=== PATIENT | female | born 1990 | race African-American/Black ===

== ENCOUNTER 2017-08-09 08:16 | Emergency (ER) | payer SELFPAY ==
[2017-08-09] MEDS ORDERED: AZITHROMYCIN 250 MG TAB ONE (08:54)
--- NOTE | 2017-08-09 08:54 | ER ---
Nurse's Notes [facility] Name: Jose Watts Age: 27 yrs Sex: Female : 1990 Arrival Date: 08/09/2017 Time: 08:19 Bed 17 Private MD: None, None Diagnosis: Acute pharyngitis;Cough Presentation: 08/09 08:29 Presenting complaint: Patient states: perez had sore throat, jasen ear pain x 2 days, denies iw fever. Transition of care: patient was not received from another setting of care. Onset of symptoms was August 09, 2017. Initial Sepsis Screen: Does the patient meet any 2 criteria? No. Patient's initial sepsis screen is negative. Does the patient have a suspected source of infection? No. Patient's initial sepsis screen is negative. Care prior to arrival: None. 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 - Social history:: Smoking status: Patient/guardian denies using tobacco. - Family history:: not pertinent. Screenin:34 Abuse screen: Denies threats or abuse. Nutritional screening: No deficits noted. ae1 Tuberculosis screening: No symptoms or risk factors identified. Fall Risk None identified. Assessment: 08:32 General: Appears in no apparent distress. comfortable, Behavior is calm, cooperative. ae1 Pain: Complains of pain in uvula, left aspect of posterior pharynx and right aspect of posterior pharynx. Neuro: Level of Consciousness is awake, alert, obeys commands, Oriented to person, place, time, situation. Cardiovascular: Heart tones S1 S2 present Patient's skin is warm and dry. Respiratory: Airway is patent Respiratory effort is even, unlabored, relaxed, Breath sounds are clear bilaterally. GI: Bowel sounds present X 4 quads. Abd is soft and non tender X 4 quads. Reports nausea. : No signs and/or symptoms were reported regarding the genitourinary system. EENT: Throat is pink has enlarged tonsils. Derm: Skin is normal. Musculoskeletal: No signs and/or symptoms reported regarding the musculoskeletal system. Vital Signs: 08:30 BP 140 / 94; Pulse 71; Resp 16 S; Temp 97.6(O); Pulse Ox 98% on R/A; Weight 81.65 kg; iw Height 5 ft. 6 in. (167.64 cm); Pain 4/10; 08:30 Body Mass Index 29.05 (81.65 kg, 167.64 cm) ED Course: 08:19 Patient arrived in ED. mr 08:19 None, None is Private Physician. mr 08:25 Shane Tineo MD is Attending Physician. [facility] 08:30 Trey Quevedo, RN is Primary Nurse. ae1 08:30 Triage completed. iw 08:30 Arm band placed on. iw 08:34 Bed in low position. Call light in reach. Side rails up X 1. Pulse ox on. NIBP on. ae1 09:05 No provider procedures requiring assistance completed. Patient did not have IV access iw during this emergency room visit. 09:06 Primary Nurse role handed off by Trey Quevedo, RN Administered Medications: 08:47 Drug: Zithromax 500 mg Route: PO; hj 08:57 Follow up: Response: No adverse reaction Outcome: 08:53 Discharge ordered by . priscilla 09:05 Discharged to home ambulatory. iw 09:05 Condition: stable 09:05 Discharge instructions given to patient, Instructed on discharge instructions, follow up and referral plans. medication usage, Demonstrated understanding of instructions, follow-up care, medications, Prescriptions given X 2. 09:05 Patient left the ED. iw 09:07 Patient left the ED. hj Signatures: Shane Tineo MD MD cha Rivera, Maria Harper Prakash, RN RN Stan Dimas RN RN Trey Quevedo, SOPHIA RN ae1
--- NOTE | 2017-08-09 08:54 | EDPHYS ---
Physician Documentation [facility] Name: Jose Watts Age: 27 yrs Sex: Female : 1990 Arrival Date: 08/09/2017 Time: 08:19 Bed 17 Private MD: None, None ED Physician Shane Tineo HPI: 08/09 08:43 This 27 yrs old Black Female presents to ER via Ambulatory with complaints of Sore priscilla Throat, Ear Pain. 08:43 The patient presents with sore throat. The patient describes throat pain as burning, priscilla constant. Onset: The symptoms/episode began/occurred 3 day(s) ago. Severity of symptoms: At their worst the symptoms were mild, in the emergency department the symptoms are unchanged. Modifying factors: The symptoms are alleviated by nothing, the symptoms are aggravated by swallowing. Associated signs and symptoms: Pertinent positives: cough, fever. The patient has experienced similar episodes in the past, a few times. 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 - Social history:: Smoking status: Patient/guardian denies using tobacco. - Family history:: not pertinent. ROS: 08:43 Constitutional: Negative for fever, chills, and weight loss, Eyes: Negative for injury, priscilla pain, redness, and discharge, ENT: Negative for injury, pain, and discharge, Neck: Negative for injury, pain, and swelling, Cardiovascular: Negative for chest pain, palpitations, and edema, Abdomen/GI: Negative for abdominal pain, nausea, vomiting, diarrhea, and constipation, Back: Negative for injury and pain, : Negative for injury, bleeding, discharge, and swelling, MS/Extremity: Negative for injury and deformity, Skin: Negative for injury, rash, and discoloration, Neuro: Negative for headache, weakness, numbness, tingling, and seizure, Psych: Negative for depression, anxiety, suicide ideation, homicidal ideation, and hallucinations, Allergy/Immunology: Negative for hives, rash, and allergies, Endocrine: Negative for neck swelling, polydipsia, polyuria, polyphagia, and marked weight changes, Hematologic/Lymphatic: Negative for swollen nodes, abnormal bleeding, and unusual bruising. 08:43 Respiratory: Positive for cough, with green sputum, shortness of breath. Exam: 08:43 Constitutional: This is a well developed, well nourished patient who is awake, alert, priscilla and in no acute distress. Head/Face: Normocephalic, atraumatic. Eyes: Pupils equal round and reactive to light, extra-ocular motions intact. Lids and lashes normal. Conjunctiva and sclera are non-icteric and not injected. Cornea within normal limits. Periorbital areas with no swelling, redness, or edema. ENT: Nares patent. No nasal discharge, no septal abnormalities noted. Tympanic membranes are normal and external auditory canals are clear. Oropharynx with no redness, swelling, or masses, exudates, or evidence of obstruction, uvula midline. Mucous membranes moist. Neck: Trachea midline, no thyromegaly or masses palpated, and no cervical lymphadenopathy. Supple, full range of motion without nuchal rigidity, or vertebral point tenderness. No Meningismus. Chest/axilla: Normal chest wall appearance and motion. Nontender with no deformity. No lesions are appreciated. Cardiovascular: Regular rate and rhythm with a normal S1 and S2. No gallops, murmurs, or rubs. Normal PMI, no JVD. No pulse deficits. Abdomen/GI: Soft, non-tender, with normal bowel sounds. No distension or tympany. No guarding or rebound. No evidence of tenderness throughout. Back: No spinal tenderness. No costovertebral tenderness. Full range of motion. Female : Normal external genitalia. Skin: Warm, dry with normal turgor. Normal color with no rashes, no lesions, and no evidence of cellulitis. MS/ Extremity: Pulses equal, no cyanosis. Neurovascular intact. Full, normal range of motion. Neuro: Awake and alert, GCS 15, oriented to person, place, time, and situation. Cranial nerves II-XII grossly intact. Motor strength 5/5 in all extremities. Sensory grossly intact. Cerebellar exam normal. Normal gait. Psych: Awake, alert, with orientation to person, place and time. Behavior, mood, and affect are within normal limits. 08:43 Respiratory: the patient does not display signs of respiratory distress, Respirations: normal, no acute changes, labored breathing, is not present, asymmetrical chest movement, is not seen, Breath sounds: decreased breath sounds, rhonchi, that are mild, are scattered. Vital Signs: 08:30 BP 140 / 94; Pulse 71; Resp 16 S; Temp 97.6(O); Pulse Ox 98% on R/A; Weight 81.65 kg; iw Height 5 ft. 6 in. (167.64 cm); Pain 4/10; 08:30 Body Mass Index 29.05 (81.65 kg, 167.64 cm) iw MDM: 08:25 Patient medically screened. [facility] 08:43 Data reviewed: vital signs, nurses notes. [facility] Administered Medications: 08:47 Drug: Zithromax 500 mg Route: PO; 08:57 Follow up: Response: No adverse reaction Disposition: 08/09/17 08:53 Discharged to Home. Impression: Acute pharyngitis, Cough. - Condition is Stable. - Discharge Instructions: Pharyngitis, Pharyngitis, Xoph-md-Klzx, Cough, Adult, Pbjg-dq-Blod, Cough, Adult, Sore Throat, Igfn-ba-Vmtq. - Prescriptions for Zithromax Z- Cas 250 mg Oral Tablet - take 1 tablet by ORAL route as directed for 5 days Day 1 - take two (2) tablets one time. Day 2, 3, 4 , 5 take one (1) tablet once daily.; 6 tablet. Senait- D 12 Hour 60-120 mg Oral Tablet Sustained Release 12 hr - take 1 tablet by ORAL route every 12 hours As needed; 20 tablet. - Medication Reconciliation Form, Thank You Letter, Antibiotic Education, Prescription Opioid Use, Work release form form. - Follow up: Private Physician; When: 2 - 3 days; Reason: Recheck today's complaints, Continuance of care, Re-evaluation by your physician. - Problem is new. - Symptoms have improved. Signatures: Shane Tineo MD MD cha Williams, Irene, SOPHIA RN Stan Dimas RN RN Corrections: (The following items were deleted from the chart) 09:05 08:53 08/09/2017 08:53 Discharged to Home. Impression: Acute pharyngitis; Cough. iw Condition is Stable. Discharge Instructions: Pharyngitis, Pharyngitis, Akxj-iy-Ifrb, Cough, Adult, Zowg-fy-Rcgf, Cough, Adult, Sore Throat, Esab-sd-Ugwp. Prescriptions for Zithromax Z-Cas 250 mg Oral Tablet - take 1 tablet by ORAL route as directed for 5 days Day 1 - take two (2) tablets one time. Day 2, 3, 4 , 5 take one (1) tablet once daily.; 6 tablet, Senait-D 12 Hour 60-120 mg Oral Tablet Sustained Release 12 hr - take 1 tablet by ORAL route every 12 hours As needed; 20 tablet. and Forms are Medication Reconciliation Form, Thank You Letter, Antibiotic Education, Prescription Opioid Use. Follow up: Private Physician; When: 2 - 3 days; Reason: Recheck today's complaints, Continuance of care, Re-evaluation by your physician. Problem is new. Symptoms have improved. [facility] 09:07 09:05 08/09/2017 08:53 Discharged to Home. Impression: Acute pharyngitis; Cough. hj Condition is Stable. Discharge Instructions: Pharyngitis, Pharyngitis, Hxch-jb-Kezw, Cough, Adult, Dizn-fz-Ytop, Cough, Adult, Sore Throat, Ldex-hp-Idvg. Prescriptions for Zithromax Z-Cas 250 mg Oral Tablet - take 1 tablet by ORAL route as directed for 5 days Day 1 - take two (2) tablets one time. Day 2, 3, 4 , 5 take one (1) tablet once daily.; 6 tablet, Senait-D 12 Hour 60-120 mg Oral Tablet Sustained Release 12 hr - take 1 tablet by ORAL route every 12 hours As needed; 20 tablet. and Forms are Medication Reconciliation Form, Thank You Letter, Antibiotic Education, Prescription Opioid Use. Follow up: Private Physician; When: 2 - 3 days; Reason: Recheck today's complaints, Continuance of care, Re-evaluation by your physician. Problem is new. Symptoms have improved. iw
[2017-08-09 09:10] VITALS: BP 140/94; TEMP 97.6; O2SAT 98
== END 2017-08-09 09:07 | disposition home or self-care (01) ==
LOC: ER 08:16
DX: R05 Cough (principal)
CPT/HCPCS: 99283

== ENCOUNTER 2017-12-16 00:15 | Emergency (ER) | payer SELFPAY ==
[2017-12-16 01:19] LABS: Urine Blood NEGATIVE (NEG); Urine Glucose NEGATIVE (NEG); Urine Protein NEGATIVE (NEG); Urine Specific Gravity 1.015 (1.005-1.030); Urine pH 7.5 (5.0-7.0)
[2017-12-16 02:16] LABS: Absolute Lymphocytes (CBC) 2.1 K/uL (0.7-4.9); Absolute Monocytes 0.8 K/uL (0.1-1.3); Basophils % 0.6 % (0-1.3); Eosinophils % 2.1 % (0-4.4); Lymphocytes % 22.9 % (15.3-44.8); MCH 31.3 pg (27.0-35.0); MCV 90.9 fL (80-100); MPV 7.4 fL (7.6-11.3); RBC Red Blood Cell Count 4.18 M/uL (3.86-4.86)
[2017-12-16 02:23] LABS: Protime INR 1.03
[2017-12-16 02:35] LABS: BUN Blood Urea Nitrogen 10 mg/dL (7-18); Bicarbonate 26 mmol/L (21-32); Glucose Level 109 mg/dL (74-106); Magnesium 2.2 mg/dL (1.8-2.4); NT PRO-BNP 121 pg/mL (<125); Potassium 3.9 mmol/L (3.5-5.1); Sodium Level 137 mmol/L (136-145); Troponin (Emerg Dept Use Only) < 0.02 ng/mL (0.0-0.045)
--- NOTE | 2017-12-16 02:53 | ER ---
Nurse's Notes [facility] Name: Jose Watts Age: 27 yrs Sex: Female : 1990 Arrival Date: 12/16/2017 Time: 00:18 Bed 14 Private MD: Diagnosis: Chest pain, unspecified Presentation: 12/16 00:24 Presenting complaint: Patient states: collar bone pain X2 day intermittent. pt c/o ak1 increased pain with palpation. pt stated she has had increased stress at home along with increased heavy lifting at work. Transition of care: patient was not received from another setting of care. Onset of symptoms was December 14, 2017. Risk Assessment: Do you want to hurt yourself or someone else? Patient reports no desire to harm self or others. Initial Sepsis Screen: Does the patient meet any 2 criteria? No. Patient's initial sepsis screen is negative. Does the patient have a suspected source of infection? No. Patient's initial sepsis screen is negative. Care prior to arrival: 2 tabs motrin taken at 2245. 00:24 Method Of Arrival: Ambulatory ak1 00:24 Acuity: MELISSA 3 ak1 Triage Assessment: 00:26 General: Appears in no apparent distress. Behavior is calm, cooperative. Pain: ak1 Complains of pain in right clavicle and left clavicle. EENT: No signs and/or symptoms were reported regarding the EENT system. Neuro: No deficits noted. 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 Respiratory: No deficits noted. GI: No signs and/or symptoms were reported involving the gastrointestinal system. : No signs and/or symptoms were reported regarding the genitourinary system. Derm: Musculoskeletal: No signs and/or symptoms reported regarding the musculoskeletal system. 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 - Social history:: Smoking status: Patient uses tobacco products, smokes one-half pack cigarettes per day. - Ebola Screening: : No symptoms or risks identified at this time. Screenin:28 Abuse screen: Denies threats or abuse. Denies injuries from another. Nutritional ak1 screening: No deficits noted. Tuberculosis screening: No symptoms or risk factors identified. Fall Risk None identified. Assessment: 00:28 Pain: Pain does not radiate. Pain began 2-3 days ago. ak1 Vital Signs: 00:23 BP 146 / 89; Pulse 78; Resp 18; Temp 98.6; Pulse Ox 99% on R/A; Weight 99.79 kg (R); ak1 Height 5 ft. 6 in. (167.64 cm) (R); Pain 0/10; 02:36 BP 133 / 85; Pulse 93; Resp 18; Pulse Ox 99% on R/A; Pain 0/10; ak1 00:23 Body Mass Index 35.51 (99.79 kg, 167.64 cm) ak1 ED Course: 00:18 Patient arrived in ED. es 00:23 Natividad Aguero, RN is Primary Nurse. ak1 00:23 Arm band placed on Patient placed in an exam room, on a stretcher, on pulse oximetry, ak1 Patient notified of wait time. 00:26 Triage completed. ak1 00:27 Patient maintains SpO2 saturation greater than 95% on room air. ak1 00:28 Patient has correct armband on for positive identification. Bed in low position. Call ak1 light in reach. Side rails up X 1. Adult w/ patient. Pulse ox on. NIBP on. 00:45 X-ray completed. Portable x-ray completed in exam room. Patient tolerated procedure kw well. 00:48 Chest Single View XRAY In Process Unspecified. EDMS 00:52 Sabas Ocampo PA is PHCP. jr8 00:52 Breezy Medina MD is Attending Physician. jr8 02:05 Initial lab(s) drawn, by ri, sent to lab. Urine collected: EKG done, by ED staff. ak1 Inserted saline lock: 20 gauge in right antecubital area, using aseptic technique. Blood collected. 02:52 Arya Granados MD is Referral Physician. jr8 02:59 No provider procedures requiring assistance completed. ak1 03:02 IV discontinued, intact, bleeding controlled, No redness/swelling at site. Pressure ak1 dressing applied. Administered Medications: No medications were administered Outcome: 02:53 Discharge ordered by . jr8 03:00 Discharged to home ambulatory, with family. ak1 03:00 Condition: good 03:00 Discharge instructions given to patient, family, Instructed on discharge instructions, follow up and referral plans. Demonstrated understanding of instructions, follow-up care. 03:10 Patient left the ED. ak1 Signatures: Dispatcher [employer] Gunjan Conley Kimberlee kw Roszak, Josh, PA PA jr8 Natividad Aguero, RN RN ak1
--- NOTE | 2017-12-16 02:54 | EDPHYS ---
Physician Documentation [facility] Name: Jose Watts Age: 27 yrs Sex: Female : 1990 Arrival Date: 12/16/2017 Time: 00:18 Bed 14 Private MD: ED Physician Breezy Medina HPI: 12/16 02:10 This 27 yrs old Black Female presents to ER via Ambulatory with complaints of Chest jr8 Pain. 02:10 The patient or guardian reports chest pain that is located primarily in the anterior jr8 chest wall, bilaterally. The pain does not radiate. Associated signs and symptoms: The patient has no apparent associated signs or symptoms. The chest pain is described as sharp. Duration: The patient or guardian reports multiple episodes. Modifying factors: The symptoms are alleviated by nothing. the symptoms are aggravated by nothing. Severity of pain: At its worst the pain was moderate in the emergency department the pain has improved. The patient has experienced similar episodes in the past, a few times. The patient has not recently seen a physician. 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 - Social history:: Smoking status: Patient uses tobacco products, smokes one-half pack cigarettes per day. - Ebola Screening: : No symptoms or risks identified at this time. ROS: 02:10 Eyes: Negative for injury, pain, redness, and discharge, ENT: Negative for injury, jr8 pain, and discharge, Neck: Negative for injury, pain, and swelling, Respiratory: Negative for shortness of breath, cough, wheezing, and pleuritic chest pain, Abdomen/GI: Negative for abdominal pain, nausea, vomiting, diarrhea, and constipation, Back: Negative for injury and pain, MS/Extremity: Negative for injury and deformity, Skin: Negative for injury, rash, and discoloration, Neuro: Negative for headache, weakness, numbness, tingling, and seizure. 02:10 Cardiovascular: Positive for chest pain, Negative for edema, orthopnea, palpitations, paroxysmal nocturnal dyspnea. Exam: 02:10 Eyes: Pupils equal round and reactive to light, extra-ocular motions intact. Lids and jr8 lashes normal. Conjunctiva and sclera are non-icteric and not injected. Cornea within normal limits. Periorbital areas with no swelling, redness, or edema. ENT: Nares patent. No nasal discharge, no septal abnormalities noted. Tympanic membranes are normal and external auditory canals are clear. Oropharynx with no redness, swelling, or masses, exudates, or evidence of obstruction, uvula midline. Mucous membranes moist. Neck: Trachea midline, no thyromegaly or masses palpated, and no cervical lymphadenopathy. Supple, full range of motion without nuchal rigidity, or vertebral point tenderness. No Meningismus. Cardiovascular: Regular rate and rhythm with a normal S1 and S2. No gallops, murmurs, or rubs. Normal PMI, no JVD. No pulse deficits. Respiratory: Lungs have equal breath sounds bilaterally, clear to auscultation and percussion. No rales, rhonchi or wheezes noted. No increased work of breathing, no retractions or nasal flaring. Abdomen/GI: Soft, non-tender, with normal bowel sounds. No distension or tympany. No guarding or rebound. No evidence of tenderness throughout. Back: No spinal tenderness. No costovertebral tenderness. Full range of motion. Skin: Warm, dry with normal turgor. Normal color with no rashes, no lesions, and no evidence of cellulitis. MS/ Extremity: Pulses equal, no cyanosis. Neurovascular intact. Full, normal range of motion. Neuro: Awake and alert, GCS 15, oriented to person, place, time, and situation. Cranial nerves II-XII grossly intact. Motor strength 5/5 in all extremities. Sensory grossly intact. Cerebellar exam normal. Normal gait. 02:10 Chest/axilla: Inspection: normal, Palpation: tenderness, that is mild, of the anterior aspect of left upper chest, that does not reproduce the patient's complaints. Vital Signs: 00:23 BP 146 / 89; Pulse 78; Resp 18; Temp 98.6; Pulse Ox 99% on R/A; Weight 99.79 kg (R); ak1 Height 5 ft. 6 in. (167.64 cm) (R); Pain 0/10; 02:36 BP 133 / 85; Pulse 93; Resp 18; Pulse Ox 99% on R/A; Pain 0/10; ak1 00:23 Body Mass Index 35.51 (99.79 kg, 167.64 cm) ak1 MDM: 00:52 Patient medically screened. 02:51 Differential diagnosis: abnormal EKG, acute myocardial infarction, acute pericarditis, jr8 anxiety, chest wall pain, cholecystitis, Cholelithiasis costochondritis, esophagitis, gastritis, gastroesophageal reflux disease (GERD), pancreatitis, pericarditis, pneumonia, pulmonary embolus, thoracic aortic disection. Data reviewed: vital signs, nurses notes, lab test result(s), EKG, radiologic studies, plain films, and as a result, I will discharge patient. Data interpreted: Pulse oximetry: on room air is 99 %. Interpretation: normal. Counseling: I had a detailed discussion with the patient and/or guardian regarding: the historical points, exam findings, and any diagnostic results supporting the discharge/admit diagnosis, lab results, radiology results, the need for outpatient follow up, a ends down checker, to return to the emergency department if symptoms worsen or persist or if there are any questions or concerns that arise at home. Special discussion: Based on the patient's history, exam, and Dx evaluation, there is no indication for emergent intervention or inpatient Tx. It is understood by the patient/guardian that if the Sx's persist or worsen they need to return immediately for re-evaluation. 12/16 01:15 Order name: Urine Dipstick--Ancillary (enter results); Complete Time: 01:22 [facility] 12/16 01:15 Order name: Urine --Ancillary (enter results); Complete Time: 01:22 [facility] 12/16 01:50 Order name: Basic Metabolic Panel 12/16 01:50 Order name: CBC with Diff 12/16 01:50 Order name: Magnesium; Complete Time: 02:36 12/16 01:50 Order name: NT PRO-BNP; Complete Time: 02:36 12/16 00:39 Order name: Chest Single View XRAY 12/16 00:39 Order name: EKG; Complete Time: 00:41 12/16 00:39 Order name: EKG - Nurse/Tech; Complete Time: 00:46 [facility] 12/16 01:50 Order name: PT-INR; Complete Time: 02:47 [facility] 12/16 01:50 Order name: Troponin (emerg Dept Use Only); Complete Time: 02:36 [facility] 12/16 01:50 Order name: Cardiac monitoring; Complete Time: :59 [facility] 12/16 01:51 Order name: Basic Metabolic Panel; Complete Time: 02:36 [facility] 12/16 01:51 Order name: CBC with Automated Diff; Complete Time: 02:34 [facility] 12/16 01:50 Order name: IV Saline Lock; Complete Time: 02: [facility] 12/16 01:50 Order name: Labs collected and sent; Complete Time: 02: [facility] 12/16 01:50 Order name: O2 Per Protocol; Complete Time: [facility] 12/16 01:50 Order name: O2 Sat Monitoring; Complete Time: [facility] 12/16 01:50 Order name: Urine Dipstick-Ancillary (obtain specimen); Complete Time: Administered Medications: No medications were administered Disposition: 03:45 Co-signature as Attending Physician, Breezy Medina MD I agree with the assessment and kdr plan of care. Disposition: 12/16/17 02:53 Discharged to Home. Impression: Chest pain, unspecified. - Condition is Stable. - Discharge Instructions: Nonspecific Chest Pain, Chest Wall Pain. - Medication Reconciliation Form, Thank You Letter, Antibiotic Education, Prescription Opioid Use form. - Follow up: Arya Granados MD; When: 2 - 3 days; Reason: Recheck today's complaints, Continuance of care, Re-evaluation by your physician. - Problem is new. - Symptoms have improved. Signatures: Dispatcher [employer] [facility] Breezy Medina MD MD kdr Roszak, Josh, PA PA jr8 Natividad Aguero, RN RN ak1 Sofia Lemus RN RN kr2 Corrections: (The following items were deleted from the chart) 03:10 02:53 12/16/2017 02:53 Discharged to Home. Impression: Chest pain, unspecified. ak1 Condition is Stable. Forms are Medication Reconciliation Form, Thank You Letter, Antibiotic Education, Prescription Opioid Use. Follow up: Arya Granados; When: 2 - 3 days; Reason: Recheck today's complaints, Continuance of care, Re-evaluation by your physician. Problem is new. Symptoms have improved. jr8
[2017-12-16 03:16] VITALS: TEMP 98.6; O2SAT 99
[2017-12-16 03:17] VITALS: BP 133/85
--- NOTE | 2017-12-16 11:09 | RAD REPORT ---
EXAM DESCRIPTION: RAD - Chest Single View - 12/16/2017 12:47 am CLINICAL HISTORY: Chest pain COMPARISON: April 2016 TECHNIQUE: AP portable chest image was obtained 0042 hours . FINDINGS: Lungs are clear. Heart and vasculature are normal. No measurable pleural effusion and no p neumothorax. No gross bony abnormality seen. No acute aortic findings suspected. IMPRESSION: No acute cardiopulmonary process. No significant change from comparison.
--- NOTE | 2017-12-17 12:15 | EKG ---
Test Date: 2017-12-16 Test Time: 00:33:10 Tdp Displays Analyst: ROBERT MEASUREMENT RESULTS: Intervals: Rate: 80 [place]: 170 QRSD: 78 QT: 368 QTc: 424 [place]: P: 26 [place]: 170 QRS: 47 T: 10 INTERPRETIVE STATEMENTS: Normal sinus rhythm Normal ECG Compared to ECG 04/06/2016 14:54:25 Sinus arrhythmia no longer present Electronically Signed On 12-17-17 12:08:21 CDT by Federico Thakur
== END 2017-12-16 03:10 | disposition home or self-care (01) ==
LOC: ER 00:15
DX: R07.9 Chest pain, unspecified (principal); F17.210 Nicotine dependence, cigarettes, uncomplicated
CPT/HCPCS: 36415; 71045; 80048; 81003; 81025; 83735; 83880; 84484; 85025; 85610; 93005; 99284

== ENCOUNTER 2018-08-05 09:06 | Emergency (ER) | payer SELFPAY ==
--- NOTE | 2018-08-05 10:05 | EDPHYS ---
Physician Documentation [facility] Name: Jose Watts Age: 28 yrs Sex: Female : 1990 Arrival Date: 08/05/2018 Time: 09:08 Bed 19 Private MD: ED Physician Jesus Choi HPI: 08/05 09:15 This 28 yrs old Black Female presents to ER via Unassigned with complaints of Sore kb Throat. 09:15 The patient presents with sore throat. The patient describes throat pain as constant. kb Onset: The symptoms/episode began/occurred 2 day(s) ago. Severity of symptoms: At their worst the symptoms were mild, moderate, in the emergency department the symptoms are unchanged. Modifying factors: The symptoms are alleviated by nothing, the symptoms are aggravated by swallowing, Patient's oral intake status: good The patient has had contact with sick daughter, son, kids had flu last week. Associated signs and symptoms: Pertinent positives: cough, Sore throat Pertinent negatives chest pain, chills, diarrhea, dysphagia, earache, fever, flu-like symptoms, headache, nausea, rhinorrhea, shortness of breath, vomiting. The patient has not experienced similar symptoms in the past. The patient has not recently seen a physician. 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 - Social history:: Smoking status: Patient/guardian denies using tobacco. - Ebola Screening: : Patient negative for fever greater than or equal to 101.5 degrees Fahrenheit, and additional compatible Ebola Virus Disease symptoms Patient denies exposure to infectious person Patient denies travel to an Ebola-affected area in the 21 days before illness onset No symptoms or risks identified at this time. ROS: 09:15 Constitutional: Negative for fever, chills, and weight loss, Neck: Negative for injury, kb pain, and swelling, Cardiovascular: Negative for chest pain, palpitations, and edema, Abdomen/GI: Negative for abdominal pain, nausea, vomiting, diarrhea, and constipation, Back: Negative for injury and pain, MS/Extremity: Negative for injury and deformity, Skin: Negative for injury, rash, and discoloration, Neuro: Negative for headache, weakness, numbness, tingling, and seizure. 09:15 ENT: Positive for sore throat. 09:15 Respiratory: Positive for cough, Negative for dyspnea on exertion, hemoptysis, orthopnea, pleurisy, shortness of breath, sputum production, wheezing. Exam: 09:15 Constitutional: This is a well developed, well nourished patient who is awake, alert, kb and in no acute distress. Head/Face: Normocephalic, atraumatic. Chest/axilla: Normal chest wall appearance and motion. Nontender with no deformity. No lesions are appreciated. Cardiovascular: Regular rate and rhythm with a normal S1 and S2. No gallops, murmurs, or rubs. Normal PMI, no JVD. No pulse deficits. Respiratory: Lungs have equal breath sounds bilaterally, clear to auscultation and percussion. No rales, rhonchi or wheezes noted. No increased work of breathing, no retractions or nasal flaring. Abdomen/GI: Soft, non-tender, with normal bowel sounds. No distension or tympany. No guarding or rebound. No evidence of tenderness throughout. Skin: Warm, dry with normal turgor. Normal color with no rashes, no lesions, and no evidence of cellulitis. MS/ Extremity: Pulses equal, no cyanosis. Neurovascular intact. Full, normal range of motion. Neuro: Awake and alert, GCS 15, oriented to person, place, time, and situation. Cranial nerves II-XII grossly intact. Motor strength 5/5 in all extremities. Sensory grossly intact. Cerebellar exam normal. Normal gait. 09:15 ENT: External ear(s): are unremarkable, Ear canal(s): are normal, TM's: are normal, Nose: is normal, Mouth: is normal, Posterior pharynx: Airway: normal, no evidence of obstruction, Tonsils: bilaterally enlarged, Uvula: normal, midline, swelling, that is mild, erythema, is not appreciated. Vital Signs: 09:13 Temp 97.9; sg 09:17 BP 122 / 79; Pulse 71; Resp 16; Pulse Ox 99% on R/A; Weight 94.35 kg (R); Height 5 ft. sg 6 in. (167.64 cm); Pain /; 09:17 Body Mass Index 33.57 (94.35 kg, 167.64 cm) sg MDM: 09:10 Patient medically screened. kb 09:17 Data reviewed: vital signs, nurses notes. Data interpreted: Pulse oximetry: on room air kb is 100 %. Interpretation: normal. 10:04 Counseling: I had a detailed discussion with the patient and/or guardian regarding: the kb historical points, exam findings, and any diagnostic results supporting the discharge/admit diagnosis, lab results, the need for outpatient follow up, a family practitioner, to return to the emergency department if symptoms worsen or persist or if there are any questions or concerns that arise at home. 08/05 09:15 Order name: Flu; Complete Time: 09:50 kb 08/05 09:15 Order name: Strep; Complete Time: 09:50 kb 08/05 09:50 Order name: Throat Culture EDMS Administered Medications: No medications were administered Disposition: 22:03 Co-signature as Attending Physician, Jesus Choi MD Available for consultation at ps1 all times. . Disposition: 08/05/18 10:04 Discharged to Home. Impression: Acute pharyngitis. - Condition is Stable. - Discharge Instructions: Pharyngitis, [id number], Sore Throat, [id number]. - Medication Reconciliation Form, Thank You Letter, Antibiotic Education, Prescription Opioid Use form. - Follow up: Private Physician; When: 2 - 3 days; Reason: Recheck today's complaints, Continuance of care, Re-evaluation by your physician. Follow up: Emergency Department; When: As needed; Reason: Worsening of condition. Signatures: Dispatcher [employer] EDRI Clover Osorio, TELEGRAPHIC TYPEWRITER OPERATOR-C TELEGRAPHIC TYPEWRITER OPERATOR-Yessenia Dean RN RN aj1 Zhao Allison RN RN Jesus Celeste MD MD ps1 Corrections: (The following items were deleted from the chart) 10:16 10:04 08/05/2018 10:04 Discharged to Home. Impression: Acute pharyngitis. Condition is aj1 Stable. Forms are Medication Reconciliation Form, Thank You Letter, Antibiotic Education, Prescription Opioid Use. Follow up: Private Physician; When: 2 - 3 days; Reason: Recheck today's complaints, Continuance of care, Re-evaluation by your physician. Follow up: Emergency Department; When: As needed; Reason: Worsening of condition. kb
--- NOTE | 2018-08-05 10:05 | ER ---
Nurse's Notes [facility] Name: Jose Watst Age: 28 yrs Sex: Female : 1990 Arrival Date: 08/05/2018 Time: 09:08 Bed 19 Private MD: Diagnosis: Acute pharyngitis Presentation: 08/05 09:14 Acuity: MELISSA 4 sg 09:16 Presenting complaint: Patient states: Sore throat x2 days, with a cough that began sg today, denies fever N/V/D at home. Transition of care: patient was not received from another setting of care. Onset of symptoms was August 05, 2018. Risk Assessment: Do you want to hurt yourself or someone else? Patient reports no desire to harm self or others. Initial Sepsis Screen: Does the patient meet any 2 criteria? No. Patient's initial sepsis screen is negative. Does the patient have a suspected source of infection? No. Patient's initial sepsis screen is negative. Care prior to arrival: None. 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 - Social history:: Smoking status: Patient/guardian denies using tobacco. - Ebola Screening: : Patient negative for fever greater than or equal to 101.5 degrees Fahrenheit, and additional compatible Ebola Virus Disease symptoms Patient denies exposure to infectious person Patient denies travel to an Ebola-affected area in the 21 days before illness onset No symptoms or risks identified at this time. Screenin:22 Abuse screen: Denies threats or abuse. Denies injuries from another. Nutritional sg screening: No deficits noted. Tuberculosis screening: No symptoms or risk factors identified. Never had TB. Fall Risk None identified. Assessment: 09:20 General: Appears in no apparent distress. comfortable, well groomed, well developed, sg well nourished, Behavior is calm, cooperative, appropriate for age. Pain: Complains of pain in sore throat Quality of pain is described as aching. Neuro: Level of Consciousness is awake, alert, obeys commands, Oriented to person, place, time, situation, Speech is normal, Facial symmetry appears normal. Cardiovascular: Capillary refill is brisk in bilateral fingers Patient's skin is warm and dry. Chest pain is denied. Respiratory: Airway is patent Respiratory effort is even, unlabored, Respiratory pattern is regular, symmetrical. GI: No signs and/or symptoms were reported involving the gastrointestinal system. : No signs and/or symptoms were reported regarding the genitourinary system. EENT: Oral mucosa is moist. Throat is pink has enlarged tonsils on left. Derm: Skin is intact, is healthy with good turgor, Skin is dry, Skin is normal, Skin temperature is warm. Musculoskeletal: No signs and/or symptoms reported regarding the musculoskeletal system. 09:42 Reassessment: Patient appears in no apparent distress at this time. Juan PAGAN at sg bedside updating pt on POC. 10:15 Reassessment: Patient appears in no apparent distress at this time. No changes from aj1 previously documented assessment. Patient and/or family updated on plan of care and expected duration. Pain level reassessed. Patient is alert, oriented x 3, equal unlabored respirations, skin warm/dry/pink. Vital Signs: 09:13 Temp 97.9; sg 09:17 BP 122 / 79; Pulse 71; Resp 16; Pulse Ox 99% on R/A; Weight 94.35 kg (R); Height 5 ft. sg 6 in. (167.64 cm); Pain 6/10; 09:17 Body Mass Index 33.57 (94.35 kg, 167.64 cm) ED Course: 09:08 Patient arrived in ED. as 09:10 Clover Osorio FNP-C is [facility]. kb 09:10 Jesus Choi MD is Attending Physician. kb 09:10 Flu and/or RSV swab sent to lab. Strep swab sent to lab. sg 09:12 Arm band placed on. sg 09:14 Triage completed. sg 09:16 Zhao Allison, SOPHIA is Primary Nurse. sg 10:15 No provider procedures requiring assistance completed. Patient did not have IV access aj1 during this emergency room visit. 10:16 Patient has correct armband on for positive identification. aj1 Administered Medications: No medications were administered Outcome: 10:04 Discharge ordered by . kb 10:16 Discharged to home ambulatory. aj1 10:16 Condition: good 10:16 Discharge instructions given to patient, Instructed on discharge instructions, follow up and referral plans. Demonstrated understanding of instructions, follow-up care. 10:16 Patient left the ED. aj1 Signatures: Clover Osorio, TEST MANAGER-C TEST MANAGER-Yessenia Dean RN RN aj1 Zhao Allison RN RN sg Martinez, Amelia as Corrections: (The following items were deleted from the chart) 09:16 09:13 LMP 07/23/2018 regulo rajput
[2018-08-05 10:51] VITALS: TEMP 97.9
[2018-08-05 10:52] VITALS: BP 122/79; O2SAT 99
== END 2018-08-05 10:16 | disposition home or self-care (01) ==
LOC: ER 09:06
DX: J02.9 Acute pharyngitis, unspecified (principal)
CPT/HCPCS: 87070; 87081; 87804; 99283

== ENCOUNTER 2019-02-24 10:36 | Emergency (ER) | payer SELFPAY ==
--- NOTE | 2019-02-24 12:13 | ER ---
Nurse's Notes [facility] Name: Jose Watts Age: 29 yrs Sex: Female : 1990 Arrival Date: 02/24/2019 Time: 10:38 Bed 15 Private MD: Diagnosis: Acute upper respiratory infection, unspecified Presentation: 02/24 11:00 Presenting complaint: Patient states: sore throat, headache, cough, subjective fever, iw jasen ear pain X 1 week. Transition of care: patient was not received from another setting of care. Onset of symptoms was February 18, 2019. Risk Assessment: Do you want to hurt yourself or someone else? Patient reports no desire to harm self or others. Initial Sepsis Screen: Does the patient meet any 2 criteria? No. Patient's initial sepsis screen is negative. Does the patient have a suspected source of infection? No. Patient's initial sepsis screen is negative. Care prior to arrival: None. 11:00 Method Of Arrival: Ambulatory iw 11:00 Acuity: MELISSA 4 iw Triage Assessment: 11:05 General: Appears in no apparent distress. comfortable, Behavior is calm, cooperative, bp appropriate for age. Pain: Complains of pain in SORE THROAT, BILATERAL EAR. EENT: No deficits noted. Neuro: No deficits noted. Cardiovascular: No deficits noted. Respiratory: Reports cough that is. GI: No signs and/or symptoms were reported involving the gastrointestinal system. : No signs and/or symptoms were reported regarding the genitourinary system. Derm: No deficits noted. Musculoskeletal: No deficits noted. 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 - Social history:: Smoking status: Patient uses tobacco products, denies chronic smoking, but will smoke occasionally. - Ebola Screening: : Patient negative for fever greater than or equal to 101.5 degrees Fahrenheit, and additional compatible Ebola Virus Disease symptoms Patient denies exposure to infectious person Patient denies travel to an Ebola-affected area in the 21 days before illness onset No symptoms or risks identified at this time. Screenin:05 Abuse screen: Denies threats or abuse. Denies injuries from another. Nutritional bp screening: No deficits noted. Tuberculosis screening: No symptoms or risk factors identified. Fall Risk None identified. Assessment: 11:05 General: SEE TRIAGE NOTE. Respiratory: Airway is patent Respiratory effort is even, bp unlabored, Breath sounds are clear bilaterally. EENT: Throat is reddened. 12:23 Reassessment: PT D/C HOME AMBULATORY WITH FAMILY, DX WITH VIRAL URI. bp Vital Signs: 11:02 BP 125 / 88; Pulse 70; Resp 16; Temp 98.2; Pulse Ox 99% on R/A; Weight 90.72 kg; Height iw 5 ft. 6 in. (167.64 cm); 12:23 BP 121 / 79; Pulse 75; Resp 16; Temp 98.2; Pulse Ox 99% ; bp 11:02 Body Mass Index 32.28 (90.72 kg, 167.64 cm) ED Course: 10:38 Patient arrived in ED. mr 11:00 Conner Brice, SOPHIA is Primary Nurse. bp 11:00 Kedar Rain NP is PHCP. pm1 11:00 Breezy Medina MD is Attending Physician. pm1 11:02 Triage completed. iw 11:03 Arm band placed on. iw 11:05 Patient has correct armband on for positive identification. Bed in low position. Call bp light in reach. Side rails up X2. 12:23 No provider procedures requiring assistance completed. Patient did not have IV access bp during this emergency room visit. Administered Medications: No medications were administered Outcome: 12:12 Discharge ordered by MD. pm1 12:23 Discharged to home ambulatory, with family. bp 12:23 Condition: stable 12:23 Discharge instructions given to patient, Instructed on discharge instructions, follow up and referral plans. medication usage, Demonstrated understanding of instructions, follow-up care, medications, Prescriptions given X 1. 12:25 Patient left the ED. bp Signatures: Ivet Matos Irene, RN RN iw Kedar Rain NP WASHER AND CAPPER MACHINE OPERATOR pm1 Conner Brice RN RN bp
--- NOTE | 2019-02-24 12:13 | EDPHYS ---
Physician Documentation [facility] Name: Jose Watts Age: 29 yrs Sex: Female : 1990 Arrival Date: 02/24/2019 Time: 10:38 Bed 15 Private MD: ED Physician Breezy Medina HPI: 02/24 11:15 This 29 yrs old Black Female presents to ER via Ambulatory with complaints of Sore pm1 Throat, Headache, Cough. 11:15 The patient presents with sore throat. The patient describes throat pain as constant, pm1 scratchy. Onset: The symptoms/episode began/occurred 1 week(s) ago. Severity of symptoms: in the emergency department the symptoms are unchanged. Modifying factors: the symptoms are aggravated by cough, Patient's oral intake status: good The patient has had contact with sick daughter, URI - viral infection. Associated signs and symptoms: Pertinent positives: cough, earache, headache, subjective fever, Pertinent negatives diarrhea, flu-like symptoms, nausea, vomiting. The patient has not recently seen a physician. 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 - Social history:: Smoking status: Patient uses tobacco products, denies chronic smoking, but will smoke occasionally. - Ebola Screening: : Patient negative for fever greater than or equal to 101.5 degrees Fahrenheit, and additional compatible Ebola Virus Disease symptoms Patient denies exposure to infectious person Patient denies travel to an Ebola-affected area in the 21 days before illness onset No symptoms or risks identified at this time. ROS: 11:15 Eyes: Negative for injury, pain, redness, and discharge, Neck: Negative for injury, pm1 pain, and swelling, Respiratory: Negative for shortness of breath, cough, wheezing, and pleuritic chest pain. 11:15 Back: Negative for injury and pain. 11:15 Abdomen/GI: Negative for abdominal pain, nausea, vomiting, diarrhea, and constipation, MS/Extremity: Negative for injury and deformity, Skin: Negative for injury, rash, and discoloration. 11:15 Constitutional: Positive for subjective fever, Negative for body aches, poor PO intake. 11:15 ENT: Positive for ear pain, sinus congestion, sore throat, Negative for drainage from ear(s). 11:15 Respiratory: Positive for cough, occasional sputum, Negative for shortness of breath, wheezing. 11:15 Neuro: Positive for headache, Negative for dizziness, numbness, tingling, weakness. Exam: 11:15 Constitutional: This is a well developed, well nourished patient who is awake, alert, pm1 and in no acute distress. Head/Face: Normocephalic, atraumatic. Eyes: Pupils equal round and reactive to light, extra-ocular motions intact. Lids and lashes normal. Conjunctiva and sclera are non-icteric and not injected. Cornea within normal limits. Periorbital areas with no swelling, redness, or edema. 11:15 Neck: Trachea midline, no thyromegaly or masses palpated, and no cervical lymphadenopathy. Supple, full range of motion without nuchal rigidity, or vertebral point tenderness. No Meningismus. Chest/axilla: Normal chest wall appearance and motion. Nontender with no deformity. No lesions are appreciated. Cardiovascular: Regular rate and rhythm with a normal S1 and S2. No gallops, murmurs, or rubs. Normal PMI, no JVD. No pulse deficits. Respiratory: Lungs have equal breath sounds bilaterally, clear to auscultation and percussion. No rales, rhonchi or wheezes noted. No increased work of breathing, no retractions or nasal flaring. Abdomen/GI: Soft, non-tender, with normal bowel sounds. No distension or tympany. No guarding or rebound. No evidence of tenderness throughout. Back: No spinal tenderness. No costovertebral tenderness. Full range of motion. Skin: Warm, dry with normal turgor. Normal color with no rashes, no lesions, and no evidence of cellulitis. MS/ Extremity: Pulses equal, no cyanosis. Neurovascular intact. Full, normal range of motion. 11:15 ENT: External ear(s): are unremarkable, Ear canal(s): are normal, TM's: are normal, no evidence of bulging, no erythema, no fluid levels, Nose: is normal, Mouth: is normal, Posterior pharynx: Airway: normal, no evidence of obstruction, patent, Tonsils: bilaterally enlarged, with erythema, no exudate, no ulcerations, erythema, that is mild, peritonsillar mass, is not appreciated, pooling of secretions, is not appreciated. 11:15 Neuro: Orientation: is normal, Motor: is normal, moves all fours, Gait: is steady, at a normal pace, without difficulty. Vital Signs: 11:02 BP 125 / 88; Pulse 70; Resp 16; Temp 98.2; Pulse Ox 99% on R/A; Weight 90.72 kg; Height iw 5 ft. 6 in. (167.64 cm); 12:23 BP 121 / 79; Pulse 75; Resp 16; Temp 98.2; Pulse Ox 99% ; bp 11:02 Body Mass Index 32.28 (90.72 kg, 167.64 cm) iw MDM: 11:00 Patient medically screened. pm1 11:25 Data reviewed: vital signs. Data interpreted: Pulse oximetry: on room air is 99 %. pm1 Interpretation: normal. 12:12 Counseling: I had a detailed discussion with the patient and/or guardian regarding: the pm1 historical points, exam findings, and any diagnostic results supporting the discharge/admit diagnosis, lab results, the need for outpatient follow up, to return to the emergency department if symptoms worsen or persist or if there are any questions or concerns that arise at home. 02/24 11:06 Order name: Flu; Complete Time: 12:12 pm1 02/24 11:06 Order name: Strep; Complete Time: 11:48 pm1 02/24 11:42 Order name: Throat Culture EDMS Administered Medications: No medications were administered Disposition: 16:39 Co-signature as Attending Physician, Breezy Medina MD I agree with the assessment and kdr plan of care. Disposition: 02/24/19 12:12 Discharged to Home. Impression: Acute upper respiratory infection, unspecified. - Condition is Stable. - Discharge Instructions: Upper Respiratory Infection, Adult, Viral Respiratory Infection. - Prescriptions for Guaifenesin AC 10- 100 mg/5 mL Oral Liquid - take 10 milliliter by ORAL route every 4 hours As needed; 240 milliliter. - Medication Reconciliation Form, Thank You Letter, Antibiotic Education, Prescription Opioid Use form. - Follow up: Emergency Department; When: As needed; Reason: Worsening of condition. Follow up: Private Physician; When: 2 - 3 days; Reason: Recheck today's complaints, Continuance of care, Re-evaluation by your physician. - Problem is new. - Symptoms have improved. Signatures: Dispatcher [employer] EDMS Breezy Medina MD MD kdr Harper Prakash RN RN iw Kedar Rain, ENVELOPE FOLD OPERATOR ENVELOPE FOLD OPERATOR pm1 Conner Brice RN RN bp Corrections: (The following items were deleted from the chart) 12:25 12:12 02/24/2019 12:12 Discharged to Home. Impression: Acute upper respiratory bp infection, unspecified. Condition is Stable. Discharge Instructions: Upper Respiratory Infection, Adult, Viral Respiratory Infection. Prescriptions for Guaifenesin AC 10-100 mg/5 mL Oral Liquid - take 10 milliliter by ORAL route every 4 hours As needed; 240 milliliter. and Forms are Medication Reconciliation Form, Thank You Letter, Antibiotic Education, Prescription Opioid Use. Follow up: Emergency Department; When: As needed; Reason: Worsening of condition. Follow up: Private Physician; When: 2 - 3 days; Reason: Recheck today's complaints, Continuance of care, Re-evaluation by your physician. Problem is new. Symptoms have improved. pm1
[2019-02-24 12:52] VITALS: TEMP 98.2; O2SAT 99
[2019-02-24 12:53] VITALS: BP 121/79
== END 2019-02-24 12:25 | disposition home or self-care (01) ==
LOC: ER 10:36
DX: J06.9 Acute upper respiratory infection, unspecified (principal); Z72.0 Tobacco use
CPT/HCPCS: 87070; 87081; 87804; 99282

== ENCOUNTER 2019-05-06 13:16 | Emergency (ER) | payer SELFPAY ==
--- NOTE | 2019-05-06 14:01 | EDPHYS ---
Physician Documentation [facility] Name: Jose Watts Age: 29 yrs Sex: Female : 1990 Arrival Date: 05/06/2019 Time: 13:19 Bed 11 Private MD: ED Physician Shane Tineo HPI: 05/06 13:56 This 29 yrs old Black Female presents to ER via Ambulatory with complaints of Ear Pain. jmm 13:56 The patient presents with pain. Onset: The symptoms/episode began/occurred gradually, 2 jmm day(s) ago. Modifying factors: The symptoms are alleviated by nothing, the symptoms are aggravated by nothing. Associated signs and symptoms: Pertinent positives: cough, Pertinent negatives: fever. This is a 29 year old female with no chronic medical conditions that presents to the ED with complaints of left ear pain, cough. Denies fever. . 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 - Coronavirus screen:: The patient has NOT traveled to [place], [place], or [place] in the past 14 days. - Social history:: Smoking status: Patient reports the use of cigarette tobacco products, denies chronic smoking, but will smoke occasionally. - Ebola Screening: : Patient denies travel to an Ebola-affected area in the 21 days before illness onset. ROS: 13:56 Constitutional: Negative for fever, chills, and weight loss, Cardiovascular: Negative jmm for chest pain, palpitations, and edema. 13:56 ENT: Positive for ear pain. 13:56 Respiratory: Positive for cough. 13:56 All other systems are negative. Exam: 13:56 Constitutional: This is a well developed, well nourished patient who is awake, alert, jmm and in no acute distress. Head/Face: atraumatic. Eyes: EOMI, no conjunctival erythema appreciated 13:56 Neck: Trachea midline, Supple Chest/axilla: Normal chest wall appearance and motion. Cardiovascular: Regular rate and rhythm. No edema appreciated Respiratory: Normal respirations, no respiratory distress appreciated Abdomen/GI: Non distended, soft Back: Normal ROM Skin: General appearance color normal MS/ Extremity: Moves all extremities, no obvious deformities appreciated, no edema noted to the lower extremities Neuro: Awake and alert, normal gait Psych: Behavior is normal, Mood is normal, Patient is cooperative and pleasant 13:56 ENT: TM's: erythema, that is mild, on the right, on the left, Posterior pharynx: erythema, that is moderate. Vital Signs: 13:25 BP 140 / 96; Pulse 82; Resp 18; Temp 97.4; Pulse Ox 100% on R/A; Weight 95.25 kg (R); aj1 Height 5 ft. 6 in. (167.64 cm) (R); Pain 7/10; 13:25 Body Mass Index 33.89 (95.25 kg, 167.64 cm) aj1 MDM: 13:44 Patient medically screened. priscilla 13:58 Data reviewed: vital signs, nurses notes. Counseling: I had a detailed discussion with bonita the patient and/or guardian regarding: the historical points, exam findings, and any diagnostic results supporting the discharge/admit diagnosis, the need for outpatient follow up, to return to the emergency department if symptoms worsen or persist or if there are any questions or concerns that arise at home. ED course: Patient is alert and non toxic in appearance in the ED. Advised to follow up with pcp and otherwise given strict return precautions. patient understood and agrees with the plan of care. . Administered Medications: No medications were administered Disposition: 05/07 07:39 Co-signature as Attending Physician, Shane Tineo MD I agree with the assessment and [facility] plan of care. Disposition: 05/06/19 13:59 Discharged to Home. Impression: Otalgia, left ear, Acute upper respiratory infection, unspecified. - Condition is Stable. - Discharge Instructions: Upper Respiratory Infection, Adult, Form - Return To Work. - Prescriptions for Bromfed DM 2- 30-10 mg/5 mL Oral syrup - take 10 milliliter by ORAL route every 4 hours; 1 bottle. Medrol (Cas) 4 mg Oral Tablets, Dose Pack - take 1 tablet by ORAL route as directed - follow package instructions; 1 packet. - Medication Reconciliation Form, Thank You Letter, Antibiotic Education, Prescription Opioid Use, Work release form form. - Follow up: Private Physician; When: 2 - 3 days; Reason: Recheck today's complaints, Continuance of care, Re-evaluation by your physician. Signatures: Yessenia Red RN RN aj1 Shane Tineo MD MD cha Mickail, Joel, PA PA jmm Smirch, Shelby, RN RN ss Corrections: (The following items were deleted from the chart) 05/06 14:17 13:59 05/06/2019 13:59 Discharged to Home. Impression: Otalgia, left ear; Acute upper ss respiratory infection, unspecified. Condition is Stable. Forms are Medication Reconciliation Form, Thank You Letter, Antibiotic Education, Prescription Opioid Use. Follow up: Private Physician; When: 2 - 3 days; Reason: Recheck today's complaints, Continuance of care, Re-evaluation by your physician. bonita
--- NOTE | 2019-05-06 14:01 | ER ---
Nurse's Notes [facility] Name: Jose Watts Age: 29 yrs Sex: Female : 1990 Arrival Date: 05/06/2019 Time: 13:19 Bed 11 Private MD: Diagnosis: Otalgia, left ear;Acute upper respiratory infection, unspecified Presentation: 05/06 13:24 Presenting complaint: Patient states: Left ear pain that started 2 days ago. Transition aj1 of care: patient was not received from another setting of care. Onset of symptoms was May 2019. Risk Assessment: Do you want to hurt yourself or someone else? Patient reports no desire to harm self or others. Initial Sepsis Screen: Does the patient meet any 2 criteria? No. Patient's initial sepsis screen is negative. Does the patient have a suspected source of infection? No. Patient's initial sepsis screen is negative. Care prior to arrival: None. 13:24 Method Of Arrival: Ambulatory aj1 13:24 Acuity: MELISSA 5 aj1 Triage Assessment: 13:25 General: Appears in no apparent distress. comfortable, Behavior is calm, cooperative, aj1 appropriate for age. Pain: Complains of pain in left ear. EENT: Reports ear pain. Neuro: Level of Consciousness is awake, alert, obeys commands. Cardiovascular: Patient's skin is warm and dry. Respiratory: Airway is patent Respiratory effort is even, unlabored, Respiratory pattern is regular, symmetrical. 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 - Coronavirus screen:: The patient has NOT traveled to [place], [place], or [place] in the past 14 days. - Social history:: Smoking status: Patient reports the use of cigarette tobacco products, denies chronic smoking, but will smoke occasionally. - Ebola Screening: : Patient denies travel to an Ebola-affected area in the 21 days before illness onset. Screenin:15 Abuse screen: Denies threats or abuse. Denies injuries from another. Nutritional ss screening: No deficits noted. Tuberculosis screening: No symptoms or risk factors identified. Fall Risk None identified. Assessment: 14:00 General: Appears in no apparent distress. comfortable. Pain: Complains of pain in left ss ear Pain currently is 7 out of 10 on a pain scale. Quality of pain is described as aching. Neuro: Level of Consciousness is awake, alert. Respiratory: Airway is patent Respiratory effort is even, unlabored. EENT: Oral mucosa is moist. Derm: Skin is intact, is healthy with good turgor, Skin is pink, warm \T\ dry. normal. Musculoskeletal: Circulation, motion, and sensation intact. Range of motion: intact in all extremities. 14:15 Reassessment: Patient appears in no apparent distress at this time. Vital Signs: 13:25 BP 140 / 96; Pulse 82; Resp 18; Temp 97.4; Pulse Ox 100% on R/A; Weight 95.25 kg (R); aj1 Height 5 ft. 6 in. (167.64 cm) (R); Pain 7/10; 13:25 Body Mass Index 33.89 (95.25 kg, 167.64 cm) [facility] ED Course: 13:19 Patient arrived in ED. mr 13:25 Triage completed. aj1 13:25 Arm band placed on Patient placed in an exam room. [facility] 13:36 Bryon Capps PA is PHCP. [facility] 13:36 Shane Tineo MD is Attending Physician. [facility] 14:13 Sandeep Ricci, SOPHIA is Primary Nurse. em 14:14 No provider procedures requiring assistance completed. Patient did not have IV access ss during this emergency room visit. 14:15 Patient has correct armband on for positive identification. Bed in low position. Call ss light in reach. Administered Medications: No medications were administered Outcome: 13:59 Discharge ordered by . [facility] 14:14 Discharged to home ambulatory. ss 14:14 Condition: good 14:14 Discharge instructions given to patient, friend, Instructed on discharge instructions, follow up and referral plans. medication usage, Demonstrated understanding of instructions, follow-up care, medications. 14:17 Patient left the ED. Signatures: Yessenia Red RN RN aj Bryon Capps PA PA [facility] [place] mr Sandeep Ricci, SOPHIA RN em Smirch, Trisha, RN RN ss
[2019-05-06 14:51] VITALS: BP 140/96; TEMP 97.4; O2SAT 100
== END 2019-05-06 14:17 | disposition home or self-care (01) ==
LOC: ER 13:16
DX: J06.9 Acute upper respiratory infection, unspecified (principal); F17.210 Nicotine dependence, cigarettes, uncomplicated
CPT/HCPCS: 99281

== ENCOUNTER 2019-06-06 08:59 | Emergency (ER) | payer SELFPAY ==
--- NOTE | 2019-06-06 12:36 | EDPHYS ---
Physician Documentation [facility] Name: Jose Watts Age: 29 yrs Sex: Female : 1990 Arrival Date: 06/06/2019 Time: 09:01 Bed 10 Private MD: ED Physician Breezy Medina HPI: 06/06 07:15 This 29 yrs old Black Female presents to ER via Ambulatory with complaints of Sore kdr Throat, Congestion. 07:15 The patient presents with sore throat. kdr 07:16 The patient or guardian reports cough, that is intermittent, described as mild, kdr described as moderate, with no sputum. Onset: The symptoms/episode began/occurred gradually, 4 day(s) ago. Modifying factors: The symptoms are alleviated by nothing. the symptoms are aggravated by nothing. Associated signs and symptoms: Pertinent positives: sore throat. Severity of symptoms: At their worst the symptoms were mild in the emergency department the symptoms are unchanged. The patient has not experienced similar symptoms in the past. The patient has not recently seen a physician. ROS: 07:16 Constitutional: Negative for fever, chills, and weight loss, Eyes: Negative for injury, kdr pain, redness, and discharge, Neck: Negative for injury, pain, and swelling, Cardiovascular: Negative for chest pain, palpitations, and edema, Abdomen/GI: Negative for abdominal pain, nausea, vomiting, diarrhea, and constipation, Back: Negative for injury and pain, : Negative for injury, bleeding, discharge, and swelling, MS/Extremity: Negative for injury and deformity, Skin: Negative for injury, rash, and discoloration, Neuro: Negative for headache, weakness, numbness, tingling, and seizure activity. Psych: Negative for depression, anxiety, suicide ideation, homicidal ideation, and hallucinations, Allergy/Immunology: Negative for hives, rash, and allergies, Endocrine: Negative for neck swelling, polydipsia, polyuria, polyphagia, and marked weight changes, Hematologic/Lymphatic: Negative for swollen nodes, abnormal bleeding, and unusual bruising. 07:16 ENT: Positive for sore throat, Negative for injury or acute deformity, drainage from ear(s), ear pain. 07:16 Respiratory: Positive for cough, with no reported sputum, Negative for dyspnea on exertion, hemoptysis, orthopnea, pleurisy, shortness of breath, sputum production, wheezing. Exam: 07:16 Constitutional: This is a well developed, well nourished patient who is awake, alert, kdr and in no acute distress. Head/Face: Normocephalic, atraumatic. Eyes: Pupils equal round and reactive to light, extra-ocular motions intact. Lids and lashes normal. Conjunctiva and sclera are non-icteric and not injected. Cornea within normal limits. Periorbital areas with no swelling, redness, or edema. Neck: Trachea midline, no thyromegaly or masses palpated, and no cervical lymphadenopathy. Supple, full range of motion without nuchal rigidity, or vertebral point tenderness. No Meningismus. Chest/axilla: Normal chest wall appearance and motion. Nontender with no deformity. No lesions are appreciated. Cardiovascular: Regular rate and rhythm with a normal S1 and S2. No gallops, murmurs, or rubs. Normal PMI, no JVD. No pulse deficits. Respiratory: Lungs have equal breath sounds bilaterally, clear to auscultation and percussion. No rales, rhonchi or wheezes noted. No increased work of breathing, no retractions or nasal flaring. Abdomen/GI: Soft, non-tender, with normal bowel sounds. No distension or tympany. No guarding or rebound. No evidence of tenderness throughout. Back: No spinal tenderness. No costovertebral tenderness. Full range of motion. Skin: Warm, dry with normal turgor. Normal color with no rashes, no lesions, and no evidence of cellulitis. MS/ Extremity: Pulses equal, no cyanosis. Neurovascular intact. Full, normal range of motion. Neuro: Awake and alert, GCS 15, oriented to person, place, time, and situation. Cranial nerves II-XII grossly intact. Motor strength 5/5 in all extremities. Sensory grossly intact. Cerebellar exam normal. Normal gait. Psych: Awake, alert, with orientation to person, place and time. Behavior, mood, and affect are within normal limits. Vital Signs: 06/05 09:48 BP 124 / 90; Pulse 79; Resp 20; Temp 97.8; Pulse Ox 98% on R/A; Weight 97.52 kg; Height dm5 5 ft. 6 in. (167.64 cm); Pain 8/10; 09:48 Body Mass Index 34.70 (97.52 kg, 167.64 cm) 5 MDM: 12:35 Patient medically screened. kdr 06/06 07:16 Data reviewed: vital signs, nurses notes, lab test result(s), radiologic studies. kdr Counseling: I had a detailed discussion with the patient and/or guardian regarding: the historical points, exam findings, and any diagnostic results supporting the discharge/admit diagnosis, lab results, radiology results, the need for outpatient follow up. 06/05 09:52 Order name: Flu; Complete Time: 12:33 dm5 06/05 09:52 Order name: Strep; Complete Time: 10:16 dm5 06/05 10:16 Order name: Throat Culture EDMS Administered Medications: No medications were administered Disposition: 06/06/19 12:35 Discharged to Home. Impression: Viral infection of unspecified site, Viral infection, unspecified, Acute upper respiratory infection, unspecified. - Condition is Stable. - Discharge Instructions: Viral Respiratory Infection, [id number]-[id number]. - Prescriptions for Promethazine VC 6.25- 5 mg/5 mL Oral syrup - take 5 milliliter by ORAL route every 4 hours As needed as needed; 200 milliliter. Tessalon Perles 100 mg Oral Capsule - take 1 capsule by ORAL route every 8 hours As needed; 15 capsule. Medrol (Cas) 4 mg Oral Tablets, Dose Pack - take 1 tablet by ORAL route as directed - follow package instructions; 1 packet. - Medication Reconciliation Form, Thank You Letter, Prescription Opioid Use, Work release form form. - Follow up: Private Physician; When: 2 - 3 days; Reason: If symptoms return, Further diagnostic work-up, Recheck today's complaints, Continuance of care, Re-evaluation by your physician. - Problem is new. - Symptoms have improved. Signatures: Dispatcher [employer] EDMS Clover Osorio, SNACK BAR COOK-C LATASHA-Breezy Christie MD MD kdr Smirch, Shelby, RN RN ss Corrections: (The following items were deleted from the chart) 06/05 12:49 12:35 06/06/2019 12:35 Discharged to Home. Impression: Viral infection of unspecified ss site; Viral infection, unspecified; Acute upper respiratory infection, unspecified. Condition is Stable. Forms are Medication Reconciliation Form, Thank You Letter, Antibiotic Education, Prescription Opioid Use. Follow up: Private Physician; When: 2 - 3 days; Reason: If symptoms return, Further diagnostic work-up, Recheck today's complaints, Continuance of care, Re-evaluation by your physician. Problem is new. Symptoms have improved. kdr
--- NOTE | 2019-06-06 12:36 | ER ---
Nurse's Notes [facility] Name: Jose Watts Age: 29 yrs Sex: Female : 1990 Arrival Date: 06/06/2019 Time: 09:01 Bed 10 Private MD: Diagnosis: Viral infection of unspecified site;Viral infection, unspecified;Acute upper respiratory infection, unspecified Presentation: 06/05 09:48 Chief complaint: Patient states: cough for 4 days but worse today, with sore throat. dm5 Coronavirus screen: The patient has NOT traveled to a country currently being monitored by the [facility] within the last 14 days. Proceed with normal triage procedures. The patient has NOT had contact with any known and/or suspected case of coronavirus. Proceed with normal triage procedures. Ebola Screen: Patient negative for fever greater than or equal to 101.5 degrees Fahrenheit, and additional compatible Ebola Virus Disease symptoms Patient denies exposure to infectious person. Patient denies travel to an Ebola-affected area in the 21 days before illness onset. No symptoms or risks identified at this time. Initial Sepsis Screen: Does the patient meet any 2 criteria? No. Patient's initial sepsis screen is negative. Does the patient have a suspected source of infection? No. Patient's initial sepsis screen is negative. Risk Assessment: Do you want to hurt yourself or someone else? Patient reports no desire to harm self or others. 09:48 Method Of Arrival: Ambulatory dm5 09:48 Acuity: MELISSA 4 dm5 Vital Signs: 09:48 BP 124 / 90; Pulse 79; Resp 20; Temp 97.8; Pulse Ox 98% on R/A; Weight 97.52 kg; Height dm5 5 ft. 6 in. (167.64 cm); Pain 8/10; 09:48 Body Mass Index 34.70 (97.52 kg, 167.64 cm) dm5 ED Course: 09:01 Patient arrived in ED. mr 09:50 Triage completed. dm5 10:04 Clover Osorio FNP-C is PHCP. kb 10:04 Breezy Medina MD is Attending Physician. kb 10:51 Breezy Medina MD is Attending Physician. kdr 12:49 No provider procedures requiring assistance completed. Patient did not have IV access ss during this emergency room visit. Administered Medications: No medications were administered Outcome: 12:35 Discharge ordered by . kdr 12:49 Discharged to home ambulatory. ss 12:49 Condition: good 12:49 Discharge instructions given to patient, Instructed on discharge instructions, follow up and referral plans. medication usage, Demonstrated understanding of instructions, follow-up care, medications, Prescriptions given X 3. 12:49 Patient left the ED. ss Signatures: Clover Osorio, LATASHA-C EMERGENCY MEDICAL TECHNICIAN BASIC-Edna German, RN RN dm5 Breezy Medina MD MD kdr Rivera, Mary mr Smirch, Shelby, SOPHIA RN ss
[2019-06-06 13:04] VITALS: BP 124/90; TEMP 97.8; O2SAT 98
== END 2019-06-06 12:49 | disposition home or self-care (01) ==
LOC: ER 08:59
DX: B34.9 Viral infection, unspecified (principal); J06.9 Acute upper respiratory infection, unspecified
CPT/HCPCS: 87070; 87081; 87804; 99282